=== PATIENT | female | born 1970 | race Caucasian/White ===

== ENCOUNTER 2025-07-21 06:28 | Day surgery (SDC) | payer OTHER, SELFPAY ==
[2025-07-12 11:19] LABS: Hematocrit 43.2 % (37.0-47.0); Hemoglobin 13.6 g/dL (12.0-16.0); Mean Corp Hgb Conc. 31.5 g/dL (33.0-37.0); Mean Corpuscular Volume 88.9 fL (81.0-99.0); Nucleated Red Blood Cells % 0 %; Platelet Count 325 10^3/uL (130-400); Red Cell Dist. Width 13.5 % (11.5-14.5)
[2025-07-12 11:41] LABS: Blood Urea Nitrogen 17 mg/dl (7-17); Calcium 9.6 mg/dl (8.4-10.2); Carbon Dioxide 28 mmol/L (22-30); Chloride 105 mmol/L (98-107); Glucose 77 mg/dl (70-99); Potassium 4.9 mmol/L (3.5-5.1); Sodium 137 mmol/L (135-145); eGFR > 60.00
[2025-07-12 14:08] VITALS: BMI 45.6
[2025-07-21 08:30] VITALS: BP 107/71
[2025-07-21] MEDS: CELEBREX 200 MG PO (08:30)
[2025-07-21] MEDS: TYLENOL 1000 MG PO (08:30)
[2025-07-21 08:45] VITALS: BMI 45.6
[2025-07-21 10:53] VITALS: BP 107/71; BP 135/68
[2025-07-21 11:00] VITALS: BP 125/80
[2025-07-21] MEDS: DILAUDID 0.5 MG IV ×3 (11:00→11:26)
[2025-07-21 11:15] VITALS: BP 129/71
[2025-07-21 11:30] VITALS: BP 131/65
[2025-07-21 12:15] VITALS: BP 115/68
[2025-07-21] MEDS: ROXICODONE 10 MG PO (12:18)
== END 2025-07-21 13:12 | disposition home or self-care (01) ==
LOC: SDS 06:28
PROVIDERS: ATTENDING PHYSICIAN Orthopaedic Surgery Hand Surgery; FAMILY PHYSICIAN Internal Medicine
DX: M75.111 Incomplete rotator cuff tear or rupture of right shoulder, not specified as traumatic (principal); S46.219A Strain of muscle, fascia and tendon of other parts of biceps, unspecified arm, initial encounter; X58.XXXA Exposure to other specified factors, initial encounter; M75.41 Impingement syndrome of right shoulder; M75.20 Bicipital tendinitis, unspecified shoulder
CPT/HCPCS: 29827; 29828; 36415; 80048; 85025; 93005; C1713